=== PATIENT | male | born 1985 | race Caucasian/White ===

== ENCOUNTER 2020-02-22 13:14 | Inpatient (IN) | payer BC ==
[~2020-02-22] VITALS: Ht 177.8 cm; Wt 70.8 kg
--- NOTE | 2020-02-22 13:45 | NUR ---
PT BIB [facility] FROM [facility]. PT PROBABLE CYMBALTA OD. PER TRANSFERING FLIGHT CREW, PT WAS FOUND ON THE FLOOR AT HOME DURING A WELLNESS CHECK. PT WAS AWAKE AND ADMITS TO POSSIBLE CYMBALTA OD, UNK AMOUNT. PT BROUGHT TO ER AND GIVEN 3MG ATIVAN PT WAS COMBATIVE. PER FLIGHT CREW, PT REMAINED COMBATIVE AND AGGITATED, PT THEN INTUBATED BY [facility]. PT TRANSFERED FOR CARE NOT AVAILABLE AT SENDING FACILITY. PT ARRIVED TO ER INTUBATED (8.0 ET TUBE, 25 AT LIP) AND ON VENTILATOR. PT MOVED TO ER VENT BY RT AND CURRENTLY VENT SETTING ARE: VT550, RR16, PEEP 5, FIO2 40%. PT CONTINUED ON DIPROVAN GTT PER ERMD ORDERS PT IS TOLLERATING WELL. PT WITH NG AND ZEE BOTH PLACED WINDING MACHINE OPERATOR. PT IS TOLERATING VENT WELL, WELL SEDATED. WILL FOLLOW ORDERS.
--- NOTE | 2020-02-22 13:50 | NUR ---
PULMONOLOGY AT [facility] FOR ASSESSMENT.
[2020-02-22] MEDS ORDERED: HEPARIN 5,000 UNITS/ML, 1ML SQ SCH (14:00)
[2020-02-22] MEDS ORDERED: LIDOCAINE-MPF 1%, 2ML ENDO PRN (14:00)
[2020-02-22] MEDS ORDERED: PLEASE ENTER HEIGHT AND WEIGHT MC SCH (14:00)
[2020-02-22] MEDS ORDERED: PLEASE ENTER ALLERGIES MC SCH (14:00)
[2020-02-22] MEDS ORDERED: SENNA 176 MG/5 ML ORAL SOL NG PRN (14:00)
[2020-02-22] MEDS ORDERED: LACTULOSE 20 GM/30 ML UDC NG PRN (14:00)
[2020-02-22] MEDS ORDERED: BISACODYL 10 MG SUPP PR PRN (14:00)
[2020-02-22] MEDS ORDERED: SODIUM CHLORIDE 0.9% 1,000 ML IV SCH (14:00)
[2020-02-22] MEDS ORDERED: FAMOTIDINE 20 MG/2 ML IV SCH (14:00)
[2020-02-22] MEDS ORDERED: ACETAMINOPHEN 650 MG/20.3 ML UDC PO/NG PRN (14:00)
[2020-02-22] MEDS ORDERED: PHARMACY MAY ADJ FOR RENAL FX MC SCH (14:00)
[2020-02-22] MEDS ORDERED: SENNA/DOCUSATE TABLET NG PRN (14:00)
--- NOTE | 2020-02-22 14:05 | NUR ---
DR. MALAVE AT [facility] FOR ASSESSMENT.
--- NOTE | 2020-02-22 14:25 | NUR ---
PT RESTING CALMLY, WELL SEDATED, TOLERATING VENT WELL, VSS. NO CHANGES TO VENT SETTING MADE. PT REMAINS ON ALL MONITORS. CONT TO MONITOR.
[2020-02-22] MEDS ORDERED: PROPOFOL 100 ML IV PRN (14:30)
[2020-02-22] MEDS ORDERED: MIDAZOLAM 1 MG/ML, 5ML IVPush ONE (14:30)
[2020-02-22] MEDS ORDERED: FAMOTIDINE 20 MG/2 ML ONE (14:39)
[2020-02-22] MEDS ORDERED: HEPARIN 5,000 UNITS/ML, 1ML ONE (14:39)
[2020-02-22] MEDS ORDERED: SODIUM CHLORIDE FLUSH 10ML SYR IVF PRN (15:00)
--- NOTE | 2020-02-22 15:12 | NUR ---
RT AT PT BEDSIDE. VENT SETTINGS CHANGED FOLLOWS: VT 500, RR14, FIO2 30%, PEEP 5. PT IS RESTING COMFORTABLY, REMAINS WELL SEDATED, TOLERATING VENT WELL. PT REMAINS ON MONITORS, VSS. PT FRIEND TAMMY AT [facility] ([phone]). PT'S FRIEND UNSURE OF WHAT MEDICATIONS PT TAKES AT HOME, STATES PT WITH HX OF DEPRESSION AND ANXIETY. STATES PT RECENTLY FROM HIS . PT TO BE CCU HOLD IN ER. CONT TO MONITOR.
--- NOTE | 2020-02-22 15:47 | NUR ---
PT REMAINS CALM AND WELL SEDATED, TOLERATING VENT WELL. PT REMAINS ON MONITORS, VSS. PT REMAINS ER CCU HOLD. CONT TO MONITOR.
[2020-02-22] MEDS: SODIUM CHLORIDE 0.9% 1,000 ML IV SCH (15:56)
--- NOTE | 2020-02-22 16:45 | NUR ---
PT RESTING COMFORTABLY IN ER [facility], REMAINS WELL SEDATED, TOLERATING VENT WELL. PT REMAINS ON MONITORS, VSS. CONT TO MONITOR.
--- NOTE | 2020-02-22 17:06 | NUR ---
PT'S MOTHER CALLED (JEROD, ). EDUCATED PT'S MOTHER THAT WE ARE UNALE TO GIVE MUCH INFO OUT ON PT PT IS UNABLE TO CONSENT. PT'S MOTHER VERBALIZED UNDERSTANDING, HOWEVER PT'S MOTHER WAS INFORMED THAT HE IS DOING WELL AND TOLERATING HIS CURRENT ER TX WELL.
--- NOTE | 2020-02-22 18:00 | NUR ---
PT RESTING IN BED, NO DISTRESS, PT REMAINS WELL SEDATED, AND TOLERATNG VENT WELL. PT REMAINS ON MONITORS, VSS. NO NEW ORDERS. CONT TO MONITOR.
--- NOTE | 2020-02-22 18:19 | NUR ---
SPOKE WITH DR SHAH WELL DR MALAVE, AWARE OF LAB RESULTS, ALSO MADE AWARE OF DARK TEA-COLORED URINE OUTPUT. NEW ORDER FOR NS BOLUS RECEIVED, BOLUS INITIATED. PT REMAINS RESTING COMFORTABLY, WELL SEDATED, TOLERATING VENT WELL. CONT TO MONITOR.
[2020-02-22] MEDS ORDERED: SODIUM CHLORIDE 0.9% 1,000ML IVBOLUS ONE (18:30)
--- NOTE | 2020-02-22 18:51 | NUR ---
REPORT GIVEN TO DIRK RENDON.
[2020-02-22] MEDS ORDERED: PROPOFOL 100 ML IV ONE ×2 (18:55→22:48)
[2020-02-22 19:06] LABS: BASOPHILS # (AUTO) 0.03 x10^3/uL (0-0.1); BASOPHILS % (AUTO) 0 % (0-1); EOSINOPHILS # (AUTO) 0.09 x10^3/uL (0-0.4); EOSINOPHILS % (AUTO) 1 % (1-7); LYMPHOCYTES # (AUTO) 2.07 x10^3/uL (1-3.4); LYMPHOCYTES % (AUTO) 15 % (22-44); MD NO; MEAN CORPUSCULAR HEMOGLOBIN 31.5 pg (27.5-34.5); MEAN CORPUSCULAR VOLUME 90.1 fL (81-97); MEAN PLATELET VOLUME 7.9 fL (7.4-10.4); MONOCYTES # (AUTO) 0.89 x10^3/uL (0.2-0.8); MONOCYTES % (AUTO) 7 % (2-9); NEUTROPHILS # (AUTO) 10.53 x10^3/uL (1.8-6.8); NEUTROPHILS % (AUTO) 77 % (42-75); PLATELET COUNT 238 x10^3/uL (130-400); RED BLOOD COUNT 4.23 x10^6/uL (4.38-5.82); RED CELL DISTRIBUTION WIDTH 15.1 % (9.4-14.8)
[2020-02-22] MEDS ORDERED: FENTANYL PF 100 MCG/2ML ONE (19:09)
--- NOTE | 2020-02-22 19:12 | NUR ---
PT AWOKE DURING RN HAND OFF REPORT WHEN IV LABS WHERE BEING DRAWN BY LAB AND SEEMED AGGITATED AND POINTING TO THROAT IF IT WAS IN PAIN. PT PROVIDED PAIN MEDS WITH CURRENT SEDATION SETTINGS AND PT VITALS MONITORED BY PAPER COATING MACHINE OPERATOR
[2020-02-22] MEDS: FENTANYL PF 100 MCG/2ML IVPush PRN ×4 (19:16→23:55)
[2020-02-22 19:19] LABS: ALBUMIN 3.2 g/dL (3.4-5.0); ANION GAP 7 mmol/L (5-15); CALCIUM 7.3 mg/dL (8.5-10.1); CHLORIDE 113 mmol/L (98-107)
[2020-02-22 19:23] LABS: ALANINE AMINOTRANSFERASE 78 U/L (12-78); ALKALINE PHOSPHATASE 31 U/L (45-117); BILIRUBIN,TOTAL 0.8 mg/dL (0.2-1.0); CREATININE 0.97 mg/dL (0.7-1.3); TOTAL PROTEIN 5.5 g/dL (6.4-8.2)
[2020-02-22] MEDS ORDERED: MIDAZOLAM 1 MG/ML, 5ML ONE (19:28)
--- NOTE | 2020-02-22 20:03 | NUR ---
PT RESTING IN GURNEY, PT IN NO APPARENT DISTRESS, PT REMAINS SEDATED, AND TOLERATNG VENT WELL. PT ON MONITORS, VSS. MONUMENT MASON WILL CONT TO MONITOR.
--- NOTE | 2020-02-22 21:28 | NUR ---
Roommate Angelica [phone] would like updates on patient if able.
[2020-02-22] MEDS ORDERED: ALBUTEROL 0.5%, 20ML ONE (21:39)
--- NOTE | 2020-02-22 22:26 | NUR ---
PT RESTING IN GURNEY, PT IN NO APPARENT DISTRESS, PT REMAINS SEDATED, AND TOLERATNG VENT WELL. PT ON MONITORS, VSS. WIRE FRAME DIPPER WILL CONT TO MONITOR.
[2020-02-23] MEDS ORDERED: FENTANYL PF 100 MCG/2ML ONE (01:08)
[2020-02-23] MEDS: FENTANYL PF 100 MCG/2ML IVPush PRN (01:11)
--- NOTE | 2020-02-23 01:54 | NUR ---
PT RESTING IN BED WITH NO CHANGE TO PT CONDITION, PT REMAINS SEDATED ON VENT WITH NO NEW ORDERS. INTERNATIONAL COORDINATOR WILL CONTINUE TO MONITOR PT VSS
[2020-02-23] MEDS: SODIUM CHLORIDE 0.9% 1,000 ML IV SCH ×2 (04:27→17:23)
--- NOTE | 2020-02-23 04:48 | NUR ---
PT EXTUBATED AT 0448 WITH SEDATION STOPPED PRIOR. PT TOLERATED EXTUBATION WELL
--- NOTE | 2020-02-23 04:50 | NUR ---
SOFT RESTRAINTS REMOVED.
[2020-02-23 05:11] LABS: FIO2 ROOM AIR %
--- NOTE | 2020-02-23 05:13 | NUR ---
SITTER AT BEDSIDE FOR 1:1 MONITORING
--- NOTE | 2020-02-23 05:14 | NUR ---
PT COOPERATIVE, TEARFUL
[2020-02-23 05:24] LABS: BASOPHILS # (AUTO) 0.11 x10^3/uL (0-0.1); BASOPHILS % (AUTO) 1 % (0-1); EOSINOPHILS # (AUTO) 0.13 x10^3/uL (0-0.4); EOSINOPHILS % (AUTO) 1 % (1-7); LYMPHOCYTES # (AUTO) 1.83 x10^3/uL (1-3.4); LYMPHOCYTES % (AUTO) 13 % (22-44); MD NO; MEAN CORPUSCULAR HEMOGLOBIN 29.7 pg (27.5-34.5); MEAN CORPUSCULAR HGB CONC 33.6 g/dL (33.2-36.2); MEAN CORPUSCULAR VOLUME 88.4 fL (81-97); MEAN PLATELET VOLUME 7.6 fL (7.4-10.4); MONOCYTES # (AUTO) 0.84 x10^3/uL (0.2-0.8); MONOCYTES % (AUTO) 6 % (2-9); NEUTROPHILS # (AUTO) 10.72 x10^3/uL (1.8-6.8); NEUTROPHILS % (AUTO) 79 % (42-75); PLATELET COUNT 227 x10^3/uL (130-400); RED BLOOD COUNT 4.43 x10^6/uL (4.38-5.82); RED CELL DISTRIBUTION WIDTH 15.3 % (9.4-14.8)
[2020-02-23 05:28] LABS: ANION GAP 7 mmol/L (5-15); CHLORIDE 112 mmol/L (98-107); CREATININE 0.88 mg/dL (0.7-1.3)
--- NOTE | 2020-02-23 06:23 | NUR ---
PT REY IN BED AWAKE, PT A/O X4 WITH SI SITTER AT PT BED SIDE. PT WILL BE MOVED TO A SI SECURE ROOM AT FIRST AVALABLE ROOM. FORMATION TESTING OPERATOR WILL CONTINUE TO MONITOR PT VSS
[2020-02-23 07:09] LABS: CREATINE KINASE, TOTAL 15390 U/L (39-308)
--- NOTE | 2020-02-23 07:37 | NUR ---
PT TO RM 4 AT THIS TIME, VSS. PT ON RA 97%, AO X4. PT WITH SITTER IN PLACE. NG TUBE PULLED PER ADMITTING MD REQUEST, BEDSIDE SWALLOW ASSESSMENT COMPLETED, PT PASSED EVAL. PT TO BE MED/TELE ADMIT, AWAITING ORDERS. NAD
--- NOTE | 2020-02-23 08:55 | NUR ---
SOFT DIET TRAY ORDERED FOR PT PER REQUEST. REPORT TO RECIEVING RN, AWAITING TRANSPORT
--- NOTE | 2020-02-23 09:23 | NUR ---
PT PROVIDED WITH MEAL TRAY, STILL AWAITING TRANSPORT
[2020-02-23 10:19] VITALS: BP 119/63
[2020-02-23 12:33] LABS: ALANINE AMINOTRANSFERASE 92 U/L (12-78); ANION GAP 10 mmol/L (5-15); CHLORIDE 108 mmol/L (98-107); CREATININE 0.87 mg/dL (0.7-1.3)
[2020-02-23 12:35] LABS: ALKALINE PHOSPHATASE 35 U/L (45-117); BILIRUBIN,TOTAL 0.6 mg/dL (0.2-1.0); TOTAL PROTEIN 5.8 g/dL (6.4-8.2)
[2020-02-23] MEDS ORDERED: DULO60CA7 PO (12:51)
[2020-02-23] MEDS ORDERED: HYDR25CA PO (12:51)
[2020-02-23 14:37] VITALS: BP 112/69
[2020-02-23] MEDS: ENOXAPARIN 40 MG/0.4 ML SQ SCH (14:54)
[2020-02-23] MEDS: POTASSIUM CHLORIDE 20 MEQ TAB.ER.PRT PO SCH ×2 (14:54→17:23)
[2020-02-23] MEDS: AMPICILLIN/SULBACTAM 3 GM in SODIUM CHLORIDE 0.9% 100 ML IV SCH ×2 (14:59→20:58)
[2020-02-23 15:35] VITALS: BP 114/73
[2020-02-23 18:16] VITALS: BP 129/70
[2020-02-24 00:10] VITALS: BP 136/77
[2020-02-24] MEDS: SODIUM CHLORIDE 0.9% 1,000 ML IV SCH ×7 (02:23→22:22)
[2020-02-24] MEDS: AMPICILLIN/SULBACTAM 3 GM in SODIUM CHLORIDE 0.9% 100 ML IV SCH ×4 (03:08→23:09)
[2020-02-24 05:46] LABS: BASOPHILS # (AUTO) 0.02 x10^3/uL (0-0.1); BASOPHILS % (AUTO) 0 % (0-1); EOSINOPHILS # (AUTO) 0.11 x10^3/uL (0-0.4); EOSINOPHILS % (AUTO) 1 % (1-7); LYMPHOCYTES # (AUTO) 1.22 x10^3/uL (1-3.4); LYMPHOCYTES % (AUTO) 9 % (22-44); MD NO; MEAN CORPUSCULAR HEMOGLOBIN 30.2 pg (27.5-34.5); MEAN CORPUSCULAR HGB CONC 34.1 g/dL (33.2-36.2); MEAN CORPUSCULAR VOLUME 88.7 fL (81-97); MEAN PLATELET VOLUME 7.5 fL (7.4-10.4); MONOCYTES # (AUTO) 0.77 x10^3/uL (0.2-0.8); MONOCYTES % (AUTO) 6 % (2-9); NEUTROPHILS # (AUTO) 10.96 x10^3/uL (1.8-6.8); NEUTROPHILS % (AUTO) 84 % (42-75); PLATELET COUNT 237 x10^3/uL (130-400); RED BLOOD COUNT 4.48 x10^6/uL (4.38-5.82); RED CELL DISTRIBUTION WIDTH 14.8 % (9.4-14.8)
[2020-02-24 05:57] LABS: CHLORIDE 107 mmol/L (98-107)
[2020-02-24 06:31] LABS: ALANINE AMINOTRANSFERASE 102 U/L (12-78); ALBUMIN 2.9 g/dL (3.4-5.0); ALKALINE PHOSPHATASE 37 U/L (45-117); ANION GAP 5 mmol/L (5-15); BILIRUBIN,TOTAL 0.5 mg/dL (0.2-1.0); CALCIUM 7.9 mg/dL (8.5-10.1); CREATINE KINASE, TOTAL 11193 U/L (39-308); CREATININE 0.69 mg/dL (0.7-1.3); TOTAL PROTEIN 5.7 g/dL (6.4-8.2)
[2020-02-24 08:16] VITALS: BP 135/89
[2020-02-24] MEDS: POTASSIUM CHLORIDE 20 MEQ TAB.ER.PRT PO SCH ×2 (08:26→12:00)
[2020-02-24] MEDS: MAGNESIUM OXIDE 400 MG TABLET PO SCH (08:27)
[2020-02-24] MEDS ORDERED: MAGNESIUM SULFATE PMX 2GM/50ML 50 ML IV ONE (08:30)
[2020-02-24] MEDS: POTASSIUM ACID PHOSPHATE 500 MG TABLET.SOL NG SCH ×3 (09:33→20:10)
[2020-02-24] MEDS: ENOXAPARIN 40 MG/0.4 ML SQ SCH (12:00)
[2020-02-24 13:47] VITALS: BP 138/87
[2020-02-24 20:08] VITALS: BP 131/78
[2020-02-25 00:31] VITALS: BP 143/87
[2020-02-25] MEDS: SODIUM CHLORIDE 0.9% 1,000 ML IV SCH ×6 (00:34→23:19)
[2020-02-25] MEDS: POTASSIUM ACID PHOSPHATE 500 MG TABLET.SOL NG SCH (02:42)
[2020-02-25] MEDS: AMPICILLIN/SULBACTAM 3 GM in SODIUM CHLORIDE 0.9% 100 ML IV SCH (04:42)
[2020-02-25 04:57] LABS: CHLORIDE 109 mmol/L (98-107)
[2020-02-25 05:08] LABS: BASOPHILS # (AUTO) 0.03 x10^3/uL (0-0.1); BASOPHILS % (AUTO) 0 % (0-1); EOSINOPHILS # (AUTO) 0.17 x10^3/uL (0-0.4); EOSINOPHILS % (AUTO) 2 % (1-7); LYMPHOCYTES # (AUTO) 1.49 x10^3/uL (1-3.4); LYMPHOCYTES % (AUTO) 15 % (22-44); MD NO; MEAN CORPUSCULAR HEMOGLOBIN 29.9 pg (27.5-34.5); MEAN CORPUSCULAR HGB CONC 33.6 g/dL (33.2-36.2); MEAN CORPUSCULAR VOLUME 89.2 fL (81-97); MEAN PLATELET VOLUME 7.5 fL (7.4-10.4); MONOCYTES # (AUTO) 0.92 x10^3/uL (0.2-0.8); MONOCYTES % (AUTO) 9 % (2-9); NEUTROPHILS # (AUTO) 7.46 x10^3/uL (1.8-6.8); NEUTROPHILS % (AUTO) 74 % (42-75); PLATELET COUNT 259 x10^3/uL (130-400); RED BLOOD COUNT 4.79 x10^6/uL (4.38-5.82)
[2020-02-25 05:20] LABS: ALANINE AMINOTRANSFERASE 97 U/L (12-78); ALBUMIN 2.8 g/dL (3.4-5.0); ALKALINE PHOSPHATASE 38 U/L (45-117); ANION GAP 7 mmol/L (5-15); BILIRUBIN,TOTAL 0.5 mg/dL (0.2-1.0); CALCIUM 8.3 mg/dL (8.5-10.1); CREATINE KINASE, TOTAL 3874 U/L (39-308); CREATININE 0.67 mg/dL (0.7-1.3); TOTAL PROTEIN 6.3 g/dL (6.4-8.2)
[2020-02-25 06:56] VITALS: BP 125/85
[2020-02-25] MEDS: MAGNESIUM OXIDE 400 MG TABLET PO SCH (09:02)
[2020-02-25 09:53] LABS: % IRON SATURATION 12 % (20-55); IRON LEVEL 34 mcg/dL (65-175); TOTAL IRON BINDING CAPACITY 279 mcg/dL (250-450)
[2020-02-25] MEDS: AMOXICILLIN/CLAV 875-125MG TABLET PO SCH ×2 (10:10→20:53)
[2020-02-25] MEDS: ENOXAPARIN 40 MG/0.4 ML SQ SCH (12:08)
[2020-02-25 13:26] VITALS: BP 121/76
[2020-02-25] MEDS: LACTOBACILLUS CHEW TABLET PO SCH ×2 (16:31→20:53)
[2020-02-25 18:23] VITALS: BP 145/83
[2020-02-25] MEDS ORDERED: DIPHENHYDRAMINE 50 MG CAPSULE PO PRN (20:30)
[2020-02-26 01:48] VITALS: BP 141/78
[2020-02-26 04:23] LABS: BASOPHILS % (AUTO) 0 % (0-1); EOSINOPHILS # (AUTO) 0.35 x10^3/uL (0-0.4); EOSINOPHILS % (AUTO) 4 % (1-7); LYMPHOCYTES # (AUTO) 2.45 x10^3/uL (1-3.4); LYMPHOCYTES % (AUTO) 29 % (22-44); MD NO; MEAN CORPUSCULAR HEMOGLOBIN 29.7 pg (27.5-34.5); MEAN CORPUSCULAR HGB CONC 33.6 g/dL (33.2-36.2); MEAN CORPUSCULAR VOLUME 88.4 fL (81-97); MEAN PLATELET VOLUME 7.6 fL (7.4-10.4); MONOCYTES # (AUTO) 0.98 x10^3/uL (0.2-0.8); MONOCYTES % (AUTO) 12 % (2-9); NEUTROPHILS # (AUTO) 4.76 x10^3/uL (1.8-6.8); NEUTROPHILS % (AUTO) 56 % (42-75); PLATELET COUNT 301 x10^3/uL (130-400); RED BLOOD COUNT 5.06 x10^6/uL (4.38-5.82)
[2020-02-26 04:29] LABS: ALBUMIN 2.8 g/dL (3.4-5.0); ANION GAP 5 mmol/L (5-15); CALCIUM 8.6 mg/dL (8.5-10.1); CHLORIDE 108 mmol/L (98-107)
[2020-02-26 04:44] LABS: ALANINE AMINOTRANSFERASE 104 U/L (12-78); ALKALINE PHOSPHATASE 35 U/L (45-117); BILIRUBIN,TOTAL 0.4 mg/dL (0.2-1.0); CREATINE KINASE, TOTAL 1322 U/L (39-308); CREATININE 0.81 mg/dL (0.7-1.3); TOTAL PROTEIN 6.9 g/dL (6.4-8.2)
[2020-02-26] MEDS: SODIUM CHLORIDE 0.9% 1,000 ML IV SCH ×2 (05:13→10:52)
[2020-02-26 07:31] VITALS: BP 153/90
[2020-02-26] MEDS: AMOXICILLIN/CLAV 875-125MG TABLET PO SCH (07:32)
[2020-02-26] MEDS: LACTOBACILLUS CHEW TABLET PO SCH (07:33)
[2020-02-26] MEDS: MAGNESIUM OXIDE 400 MG TABLET PO SCH (07:33)
[2020-02-26] MEDS ORDERED: ACID1TAB7 PO (08:49)
[2020-02-26] MEDS ORDERED: AMOX1TAB12 PO (08:49)
[2020-02-26] MEDS: ENOXAPARIN 40 MG/0.4 ML SQ SCH (11:52)
== END 2020-02-26 11:59 | DRG 871 ==
LOC: ED 13:24 → SUATTDRO 13:52 → EDIP 14:31 → 4EST 02-23 10:04 → 4WST 02-25 13:37
PROVIDERS: ADMIT Internal Medicine; ATTEND Internal Medicine
PROC: 5A1935Z Respiratory Ventilation, Less than 24 Consecutive Hours (ICD-10-PCS; principal; 2020-02-22)
PROC: 0BH17EZ Insertion of Endotracheal Airway into Trachea, Via Natural or Artificial Opening (ICD-10-PCS; 2020-02-22)
DX: A41.9 Sepsis, unspecified organism (principal); G92 Toxic encephalopathy; J69.0 Pneumonitis due to inhalation of food and vomit; J96.01 Acute respiratory failure with hypoxia; J14 Pneumonia due to Hemophilus influenzae; M62.82 Rhabdomyolysis; Z99.11 Dependence on respirator [ventilator] status; T43.212A Poisoning by selective serotonin and norepinephrine reuptake inhibitors, intentional self-harm, initial encounter; F32.9 Major depressive disorder, single episode, unspecified; D75.1 Secondary polycythemia; E16.2 Hypoglycemia, unspecified; E83.39 Other disorders of phosphorus metabolism; E83.42 Hypomagnesemia; E86.0 Dehydration; E88.09 Other disorders of plasma-protein metabolism, not elsewhere classified; Y92.89 Other specified places as the place of occurrence of the external cause
CPT/HCPCS: 36415; 36600; J3490; 71045; 76700; 80048; 80053; 80074; 82550; 82803; 83540; 83550; 83735; 84100; 84443; 84478; 85025; 87070; 87205; 93005; 94002; 94003; G0378; J0295; J1644; J1650; J2250; J2704; J3010; J3475; J7030

== ENCOUNTER 2020-02-26 11:10 | Inpatient (IN) | payer BC ==
[~2020-02-26] VITALS: Ht 162.6 cm; Wt 62.7 kg
[~2020-02-26 11:10] MED LIST: ACID1TAB7 PO; AMOX1TAB12 PO; DULO60CA7 PO; HYDR25CA PO
[2020-02-26] MEDS ORDERED: DOCUSATE 100 MG CAPSULE PO PRN (11:30)
[2020-02-26] MEDS ORDERED: POLYETHYLENE GLYCOL 17 GM PACKET PO PRN (11:30)
[2020-02-26] MEDS ORDERED: ONDANSETRON ODT 4 MG PO PRN (11:30)
[2020-02-26] MEDS ORDERED: ACETAMINOPHEN 325 MG TABLET PO PRN (11:30)
[2020-02-26] MEDS ORDERED: BISACODYL 10 MG SUPP PR PRN (11:30)
[2020-02-26 12:00] VITALS: BP 132/91
[2020-02-26] MEDS ORDERED: PLEASE ENTER HEIGHT AND WEIGHT MC SCH (12:20)
[2020-02-26 14:33] VITALS: BP 132/91
[2020-02-26] MEDS: DULOXETINE 30 MG CAPSULE.DR PO SCH (16:19)
[2020-02-26 19:15] VITALS: BP 147/78
[2020-02-26 19:33] LABS: CHOL/HDL RATIO 3.4; FREE T4 (FREE THYROXINE) 1.31 ng/dL (0.76-1.46); LDL/HDL RATIO 1.7 (0.5-3.0)
[2020-02-27 07:14] VITALS: BP 138/82
[2020-02-27] MEDS ORDERED: AMOXICILLIN/CLAV 875-125MG TABLET PO SCH (09:30)
[2020-02-27] MEDS ORDERED: LACTOBACILLUS CHEW TABLET PO SCH (16:00)
[2020-02-27] MEDS: LACTOBACILLUS CHEW TABLET PO SCH ×2 (17:41→21:00)
[2020-02-27] MEDS: DULOXETINE 30 MG CAPSULE.DR PO SCH (17:51)
[2020-02-27 18:35] LABS: MICROSCOPIC NOT IND
[2020-02-27 19:41] VITALS: BP 143/83
[2020-02-27] MEDS: AMOXICILLIN/CLAV 875-125MG TABLET PO SCH (21:00)
[2020-02-28 06:32] LABS: BASOPHILS # (AUTO) 0.06 x10^3/uL (0-0.1); BASOPHILS % (AUTO) 1 % (0-1); EOSINOPHILS # (AUTO) 0.26 x10^3/uL (0-0.4); EOSINOPHILS % (AUTO) 3 % (1-7); LYMPHOCYTES # (AUTO) 2.52 x10^3/uL (1-3.4); LYMPHOCYTES % (AUTO) 33 % (22-44); MD NO; MEAN CORPUSCULAR HEMOGLOBIN 29.8 pg (27.5-34.5); MEAN CORPUSCULAR HGB CONC 33.6 g/dL (33.2-36.2); MEAN PLATELET VOLUME 7.1 fL (7.4-10.4); MONOCYTES # (AUTO) 1.03 x10^3/uL (0.2-0.8); MONOCYTES % (AUTO) 13 % (2-9); NEUTROPHILS # (AUTO) 3.82 x10^3/uL (1.8-6.8); NEUTROPHILS % (AUTO) 50 % (42-75); PLATELET COUNT 380 x10^3/uL (130-400); RED BLOOD COUNT 5.86 x10^6/uL (4.38-5.82)
[2020-02-28 06:40] LABS: ALBUMIN 3.7 g/dL (3.4-5.0); ANION GAP 5 mmol/L (5-15); CALCIUM 9.9 mg/dL (8.5-10.1); CHLORIDE 104 mmol/L (98-107)
[2020-02-28 06:44] LABS: ALANINE AMINOTRANSFERASE 122 U/L (12-78); ALKALINE PHOSPHATASE 39 U/L (45-117); BILIRUBIN,TOTAL 0.5 mg/dL (0.2-1.0); CREATINE KINASE, TOTAL 289 U/L (39-308); TOTAL PROTEIN 8.7 g/dL (6.4-8.2)
[2020-02-28 07:22] VITALS: BP 135/86
[2020-02-28] MEDS: AMOXICILLIN/CLAV 875-125MG TABLET PO SCH ×2 (11:07→20:31)
[2020-02-28] MEDS: LACTOBACILLUS CHEW TABLET PO SCH ×3 (11:07→20:25)
[2020-02-28] MEDS ORDERED: DULOXETINE 30 MG CAPSULE.DR PO ONE (18:00)
[2020-02-28 19:41] VITALS: BP 155/82
[2020-02-29 07:19] VITALS: BP 135/81
[2020-02-29] MEDS: AMOXICILLIN/CLAV 875-125MG TABLET PO SCH (08:54)
[2020-02-29] MEDS: LACTOBACILLUS CHEW TABLET PO SCH ×3 (08:54→20:03)
[2020-02-29] MEDS: DULOXETINE 30 MG CAPSULE.DR PO SCH (08:54)
[2020-02-29 19:35] VITALS: BP 152/83
[2020-03-01 07:03] VITALS: BP 148/95
[2020-03-01] MEDS: DULOXETINE 30 MG CAPSULE.DR PO SCH (08:34)
[2020-03-01] MEDS: LACTOBACILLUS CHEW TABLET PO SCH (08:34)
[2020-03-01] MEDS ORDERED: HYDR-826 PO (13:17)
[2020-03-01] MEDS ORDERED: ACID1TAB7 PO (13:17)
[2020-03-01] MEDS ORDERED: DULO30CA2 PO (13:17)
== END 2020-03-01 14:02 | disposition home or self-care (01) | DRG 885 ==
LOC: 3E 12:11
PROVIDERS: ADMIT Psychiatry & Neurology Psychosomatic Medicine; ATTEND Psychiatry & Neurology Psychosomatic Medicine
DX: F33.2 Major depressive disorder, recurrent severe without psychotic features (principal); A41.9 Sepsis, unspecified organism; G92 Toxic encephalopathy; J14 Pneumonia due to Hemophilus influenzae; J69.0 Pneumonitis due to inhalation of food and vomit; J96.00 Acute respiratory failure, unspecified whether with hypoxia or hypercapnia; M62.82 Rhabdomyolysis; Z99.11 Dependence on respirator [ventilator] status; F17.200 Nicotine dependence, unspecified, uncomplicated; E83.42 Hypomagnesemia; E83.39 Other disorders of phosphorus metabolism; G47.00 Insomnia, unspecified; T43.212A Poisoning by selective serotonin and norepinephrine reuptake inhibitors, intentional self-harm, initial encounter; Z79.899 Other long term (current) drug therapy; Z59.0 Homelessness; Z91.5 Personal history of self-harm; Y92.89 Other specified places as the place of occurrence of the external cause
CPT/HCPCS: 36415; 80053; 80061; 81003; 82140; 82550; 82607; 84439; 84443; 85025; Q0177